=== PATIENT | male | born 1945 | race Caucasian/White ===

== ENCOUNTER 2018-12-04 07:26 | Day surgery (SDC) | payer OTHER ==
[~2018-12-04] VITALS: Ht 177.8 cm; Wt 109.8 kg
[~2018-12-04 07:26] MED LIST: ASPI81TA26 PO; ATEN50TA2 PO; CO Q100C10 PO; LIDOCAINE 2% INJ 100 MG/5 ML SDV (FOR ANES.) As Ordered ONE; MULTCAP PO; NAPR-885 PO; NS 1,000 ML IV ONE; OMEGCAP4 PO; OMEP20CA4 PO; PROPOFOL 200 MG/20 ML VIAL As Ordered ONE; REST0.05 OU; ROSU20TA5 PO
[2018-12-04] MEDS ORDERED: PROPOFOL 200 MG/20 ML VIAL As Ordered ONE (09:07)
[2018-12-04 09:30] VITALS: BP 124/75
--- NOTE | 2018-12-04 09:31 | ROOR ---
Patient Name: Villa Galarza Procedure Date: 12/04/2018 8:21 AM Date of : 1945 Age: 73 Room: [facility] Gender: Male Note Status: Finalized Procedure: Upper GI endoscopy Indications: Follow-up of Sheriff's esophagus Providers: De Doshi MD Referring MD: [facility], Admin. Requesting Provider: Medicines: Monitored Anesthesia Care Complications: No immediate complications. Procedure: Pre-Anesthesia Assessment: - Prior to the procedure, a History and Physical was performed, and patient medications and allergies were reviewed. The patient is competent. The risks and benefits of the procedure and the sedation options and risks were discussed with the patient. All questions were answered and informed consent was obtained. Patient identification and proposed procedure were verified by the physician, the nurse and the anesthesiologist in the procedure room. Mental Status Examination: alert and oriented. CV Examination: regular rate and rhythm. Prophylactic Antibiotics: The patient does not require prophylactic antibiotics. Prior Anticoagulants: The patient has taken no previous anticoagulant or antiplatelet agents. ASA Grade Assessment: II - A patient with mild systemic disease. After reviewing the risks and benefits, the patient was deemed in satisfactory condition to undergo the procedure. The anesthesia plan was to use monitored anesthesia care (MAC). Immediately prior to administration of medications, the patient was re-assessed for adequacy to receive sedatives. The heart rate, respiratory rate, oxygen saturations, blood pressure, adequacy of pulmonary ventilation, and response to care were monitored throughout the procedure. The physical status of the patient was re-assessed after the procedure. The Endoscope was introduced through the mouth, and advanced to the second part of duodenum. The upper GI endoscopy was accomplished without difficulty. The patient tolerated the procedure well. Findings: The examined esophagus was normal. The Z-line was minimally irregular and was found 40 cm from the incisors. Multiple small sessile polyps with no bleeding and no stigmata of recent bleeding were found in the gastric fundus and in the gastric body. The examined duodenum was normal. Impression: - Normal esophagus. - Z-line minimally irregular, 40 cm from the incisors. - Multiple gastric polyps. - Normal examined duodenum. - No specimens collected. Recommendation: - Discharge patient to home. - Resume previous diet. - Continue present medications. De Doshi MD De Doshi MD 12/04/2018 9:30:51 AM Electronically signed by De Doshi MD Number of Addenda: 0 Note Initiated On: 12/04/2018 8:21 AM Estimated Blood Loss: Estimated blood loss: none.
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
== END 2018-12-04 10:32 | disposition home or self-care (01) ==
LOC: M OPP 07:26
PROVIDERS: ATTEND Surgery
DX: Z12.11 Encounter for screening for malignant neoplasm of colon (principal); Z86.010 Personal history of colon polyps; D12.5 Benign neoplasm of sigmoid colon; K63.89 Other specified diseases of intestine; K57.30 Diverticulosis of large intestine without perforation or abscess without bleeding; K22.70 Barrett's esophagus without dysplasia; K22.8 Other specified diseases of esophagus; K31.7 Polyp of stomach and duodenum

== ENCOUNTER → 2021-08-04 | Outpatient (REF) ==
[~2021-08-04] MED LIST changes: -LIDOCAINE 2% INJ 100 MG/5 ML SDV (FOR ANES.) As Ordered ONE; -NS 1,000 ML IV ONE; +OMEP1CAP73 PO; -OMEP20CA4 PO; -PROPOFOL 200 MG/20 ML VIAL As Ordered ONE
== END ==
LOC: M PLAIMG 10:24
PROVIDERS: ATTEND Internal Medicine
DX: R06.02 Shortness of breath (principal)

== ENCOUNTER → 2022-05-13 | Outpatient (REF) ==
[~2022-05-13] MED LIST changes: +ACET1TAB55 PO; +ACYC1TAB PO; +AMLO1TAB25 PO; +ASPI81CH33 PO; +ATOV5SUS; +CALC200T3; +CLOP75TA2; +COEN100T PO; +CYCL1CAP2 PO; +D3 +TAB PO; +DEXA4TA PO; +FERR324T2; +KP F1200 PO; +METO50TA7; +MM S100C PO; +NITR0.4S14; +ONDA-84 PO; +PANT40TA29; +PROC10TA5; +RABE1TAB4 PO; +REFR0.5D8 OP; +REST0.05 OP; +ROSU40TA4 PO; +VITMTA PO
== END ==
LOC: M PLAIMG 13:19
PROVIDERS: ATTEND Internal Medicine
DX: R06.02 Shortness of breath (principal)